=== PATIENT | female | born 1975 | race Caucasian/White ===

== ENCOUNTER 2021-08-15 13:28 | Outpatient (CLI) | payer OTHER, SELFPAY ==
--- NOTE | ~2021-08-15 | XR_ITS ---
XR lumbar spine 2-3V DATE: 08/15/2021 13:52 INDICATION: Low back pain TECHNIQUE: AP, lateral, coned lateral lumbosacral views COMPARISON: None FINDINGS: There is and approximately 22 degrees rotatory dextroscoliosis of the lumbar spine. No fracture or bone destruction, spondylolysis or spondylolisthesis is evident. There is degenerative change at the apophyseal joints particularly in the lower lumbar and lumbosacral area. Lumbar and chris mbosacral interspaces are relatively preserved. The sacroiliac joints are intact. IMPRESSION: Rotatory dextroscoliosis Degenerative change at the apophyseal joints in the lower lumbar and lumbosacral area in particular Reviewed, dictated and finalized at location B. IMPRESSION: Rotatory dextroscoliosis Degenerative change at the apophyseal joints in the lower lumbar and lumbosacra l area in particular
== END 2021-08-15 13:29 | disposition home or self-care (01) ==
PROVIDERS: PCP Internal Medicine; Visit Provider Nurse Practitioner
DX: M54.40 Lumbago with sciatica, unspecified side (principal); M41.9 Scoliosis, unspecified
CPT/HCPCS: 72100

== ENCOUNTER 2023-07-05 01:16 | Day surgery (SDC) | payer OTHER, SELFPAY ==
[2023-07-02 12:24] VITALS: BMI 21.7
--- NOTE | 2023-07-02 12:28 | PC.NURSE ---
Report to the Outpatient Waiting Room, entrance under the green pavilion located off [facility], at time 0815 on date 07/05/23. Planned Procedure Time: 1015. Time changes happen often and if your time is changed the preop area will call you the afternoon before. - You and your visitor will be asked to self-screen and do not enter if you have any COVID symptoms. - A mask is optional within the hospital at this time. Patients may have clear liquids (water, carbonated beverages, clear teas, apple juice) until 3 hours prior to surgery with a maximum of 20 ounces. - No food from midnight until time of surgery Take the following medications with a SIP of water the morning of surgery: N/A DO NOT STOP ANY OF YOUR OTHER PRESCRIPTION MEDICATIONS PRIOR TO SURGERY ?EXCEPT THE FOLLOWING Medications to discontinue per physician: N/A Date to take last dose: N/A Please no make-up, nail frisian, hairspray, perfume, deodorant, or body powder the day of surgery. No jewelry (including any body piercings) or valuables the day of surgery, leave them at home. Please take a shower or bath the night before, or the morning of, surgery with an antibacterial soap. Wear comfortable, loose fitting clothing. - Jewelry must be removed prior to entering the operating room. Rings and piercings that are not removed may be cut off. - The hospital will not accept responsibility for valuables. - Please leave all valuables, including medications, at home the day of surgery. If you are going home after surgery, a licensed tow motor driver must drive you home. - NO public transportation without another adult if you receive anesthesia. - We recommend that an adult stay with you for 24 hours following discharge. - We also recommend that you do not drive, make important decision, drink alcoholic beverages, or take any drugs that were not prescribed by your health care provider for at least 24 hours after your discharge time. Follow any additional instructions given to you from your surgeon. If you or anyone in your household have experienced Covid symptoms in the past week, please notify your surgeon or the nurse liaison at the phone number below for possible testing. Telephone instructions given to PT - ROSALIO VENCES and asked if any additional questions and then verbalized understanding. Patient advised to call surgeon office or pre surgery nurse liaison [phone] if any additional questions.
[2023-07-05 07:12] VITALS: BP 125/65; PULSE 75; RESP 20; TEMP 36.7; O2SAT 100
--- NOTE | 2023-07-05 07:16 | PM.IMHP ---
H&P: HPI History of Present Illness Date/Time: 07/05/23 07:16 Year old female presents for treatment of heavy irregular vaginal bleeding. Cycles lasting 10-14 days with 5-7 days very heavy clotting cramping feeling fatigued as well. Ultrasound showed no abnormalities with normal endometrial lining. has had a vasectomy so tubal ligation is not necessary. Chief Complaint: Menometrorrhagia PMFSH Past Medical History Medical History Elevated BP without diagnosis of hypertension Hyperglycemia Insomnia Mild intermittent asthma Screening mammogram, encounter for Surgical History Surgical History H/O tubal ligation (09/06/05) History of tonsillectomy (11/05/87) Previous section x3 Family History Family History Father Hypertension Grandparent Family history of malignant neoplasm Mother Patient's mother is in good health Other Family history of pancreatic cancer Social History Social History Smoking status: Never smoker Alcohol intake: current Drinks per week: 2 Alcohol use details: RARE Substance use: never Substance use type: does not use Lack of Transportation: No Lack of Food: Never True Current Housing: I Have Housing Concerned About Future Housing: No Difficulty Paying Gas/Electric Bills: No Difficulty Paying for Meds: No Currently Unemployed: No Education: Associate Degree Difficulty w/ Childcare or Family Care: No Living arrangements: with family Additional living arrangements comments: spouse Occupation/Education: occupation 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 Gender identity (if verbalized by the patient): Female Sexual Orientation (if Verbalized by the Patient): Straight or Heterosexual Spiritual care concerns: No Meds Home Medications and Allergies Home Medications Medication Instructions Recorded Confirmed Type No Home Medications 07/02/23 07/02/23 History Allergies Allergy/AdvReac Type Severity Reaction Status Date / Time No Known Allergies Allergy Unknown Verified 07/02/23 12:24 Exam Const: General: cooperative, healthy appearing and comfortable Resp: Effort & Inspection: normal respiratory effort Auscultation: clear to auscultation bilaterally Cardio: Rate: regular rate Rhythm: regular rhythm GI: Inspection: normal to inspection Auscultation: normal bowel sounds : External Female Exam: normal external appearance Speculum Exam - Vagina: normal appearance of the vagina Speculum Exam - Cervix: normal appearance of the cervix Bimanual exam- vagina & uterus: normal bimanual exam and enlarged (8-10 week size) Bimanual Exam- Adnexa, other: normal adnexae Assessment and Plan Assessment and plan (1) Menorrhagia: Code(s): N92.0 - Excessive and frequent menstruation with regular cycle Status: Acute (2) Enlarged uterus: Code(s): N85.2 - Hypertrophy of uterus Status: Acute Plan 1. hysteroscopy with uterine curettings 2. Endometrial ablation
--- NOTE | 2023-07-05 07:18 | WPDHPUPDATE1 ---
History and Physical Update Update Date/Time: 07/05/23 07:18 History and Physical has been reviewed, including an updated exam of the patient. There are NO changes in the patient's condition. Risks, benefits, and alternatives have been discussed and questions answered. Patient agrees to proceed with procedure.
[2023-07-05] MEDS: ACETAMINOPHEN 500 MG TABLET 1000 MG PO (07:52)
[2023-07-05] MEDS: LACTATED RINGERS 1,000 ML 30 ML IV CONT ×2 (07:55→10:18)
--- NOTE | 2023-07-05 08:02 | WPDANESEPPF ---
Anes - Initial Pre Proc Eval Procedure: Operation Date: 07/05/23 09:15 Proposed Procedures p Hysteroscopy Dilation and Curettage Kiya Endometrial Ablation - Hugh Mendez MD Date/Time: 07/05/23 08:02 Surgeon: Hugh Mendez MD Pre Op Diagnosis: menorrhagia Patient Data Age: 48 Gender: F Height: 1.68 m Weight: 62.4 kg Last Vital Signs Temp 36.7 C 07/05/23 07:12 Pulse 75 07/05/23 07:12 Resp 20 07/05/23 07:12 BP 125/65 07/05/23 07:12 Pulse Ox 100 07/05/23 07:12 Allergies Allergy/AdvReac Type Severity Reaction Status Date / Time No Known Allergies Allergy Unknown Verified 07/05/23 07:50 Home Medications Medication Instructions Recorded Confirmed Type No Home Medications 07/02/23 07/05/23 History Patient hx anesthesia problems: none Family hx anesthesia problems: none Results Review: All pre-operative results and documents have been reviewed as part of the pre-operative evaluation. [facility] Past Medical History Medical History Elevated BP without diagnosis of hypertension Hyperglycemia Insomnia Mild intermittent asthma Screening mammogram, encounter for Surgical History Surgical History H/O tubal ligation (09/06/05) History of tonsillectomy (11/05/87) Previous section x3 Family History Family History Father Hypertension Grandparent Family history of malignant neoplasm Mother Patient's mother is in good health Other Family history of pancreatic cancer Social History Social History Smoking status: Never smoker Alcohol intake: current Drinks per week: 2 Alcohol use details: RARE Substance use: never Substance use type: does not use Lack of Transportation: No Lack of Food: Never True Current Housing: I Have Housing Concerned About Future Housing: No Difficulty Paying Gas/Electric Bills: No Difficulty Paying for Meds: No Currently Unemployed: No Education: Associate Degree Difficulty w/ Childcare or Family Care: No Living arrangements: with family Additional living arrangements comments: spouse Occupation/Education: occupation 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 Gender identity (if verbalized by the patient): Female Sexual Orientation (if Verbalized by the Patient): Straight or Heterosexual Spiritual care concerns: No Anes - Eval Final PreProcedure Day of Procedure 07/05/23 08:02 Patient weight: normal Heart: regular rate and rhythm Lungs: clear to auscultation and normal air movement Airway: Mallampati scale class II Neurological: alert and oriented Last oral intake: >/= 8 hours ASA classification: II Emergent: no Anesthetic plan: proceed Anesthesia type and monitoring: general GIVS and standard monitoring Results Review: All pre-operative results and documents have been reviewed as part of the pre-operative evaluation. Informed Consent: The patient's anesthetic plan and its attendant risks and benefits were discussed with the patient/family/POA. Questions were solicited and answers provided to the satisfaction of the patient/family/POA.
[2023-07-05] MEDS: ceFAZolin 2 GM/D5W 50 ML 2 GM/50 ML BAG IVPB (09:25)
--- NOTE | 2023-07-05 09:55 | W.PM.PROC2 ---
Procedure Note - Detailed Date of Procedure 07/05/23 Pre-op Diagnosis menorrhagia Post-op Diagnosis Same Procedure Performed 1. Hysteroscopy with uterine curettings 2. Endometrial ablation Surgeon Hugh Mendez MD Anesthesia MAC Findings 1. Stenotic cervix 2. Thickened endometrium Description of Procedure Patient prepped draped usual manner for this procedure. Cervix was stenotic but was able to be dilated and hysteroscope was then placed with evaluation of endometrial cavity which showed thickened tissue. Curettings were obtained. Kiya instrument was then placed cavity assessment performed and instrument activated. At the end of the cycle hysteroscopic exam revealed good destruction throughout and no damage. Patient tolerated the procedure well and was sent to recovery room in stable condition. Estimated Blood Loss 10 Drains No Packing No Pathology Yes Complications No immediate complications Condition Stable Disposition PACU [facility] Billing Surgery - Charge Forward: Surgery Billing
[2023-07-05 09:58] VITALS: BP 147/72; PULSE 82; RESP 14; O2SAT 99
[2023-07-05 10:15] VITALS: BP 140/74; PULSE 66; RESP 15; O2SAT 100
[2023-07-05] MEDS: fentaNYL CITRATE INJ (*CRX) 100 MCG/2 ML VIAL 25 MCG IV PUSH ×3 (10:15→11:01)
[2023-07-05 10:45] VITALS: BP 143/68; PULSE 64; RESP 16; O2SAT 100
[2023-07-05] MEDS: oxyCODONE HCL (*CRX) 5 MG TAB IR PO (11:02)
[2023-07-05 11:20] VITALS: BP 145/75; PULSE 65; RESP 14
== END 2023-07-05 11:27 | disposition home or self-care (01) ==
PROVIDERS: PCP Internal Medicine; Visit Provider Obstetrics & Gynecology
PROC: 0U5B8ZZ Destruction of Endometrium, Via Natural or Artificial Opening Endoscopic (ICD-10-PCS; CPT 58563; principal; 2023-07-05 09:15)
DX: N92.0 Excessive and frequent menstruation with regular cycle (principal); N85.2 Hypertrophy of uterus
CPT/HCPCS: 58563; 88305; A9270; J0690; J2250; J2704; J3010; J7120

== ENCOUNTER 2023-08-07 09:31 | Outpatient (CLI) | payer OTHER, SELFPAY ==
[2023-08-07 19:00] LABS: Vitamin D 25 Hydroxy 35.4 ng/mL
[2023-08-07 19:36] LABS: Alanine Aminotransferase 16 U/L (6-35); Albumin Level 4.4 g/dL (3.5-5.1); Alkaline Phosphatase 45 U/L (38-126); Anion Gap 6 mmol/L (8-16); Aspartate Amino Transferase 32 U/L (14-36); Bilirubin,Total 0.7 mg/dL (0.2-1.3); Blood Urea Nitrogen 11 mg/dL (7-17); Calcium 9.2 mg/dL (8.4-10.2); Carbon Dioxide 29 mmol/L (22-30); Chloride 103 mmol/L (98-107); Cholesterol 225 mg/dL (0-200); Estimated Glomerular Filt Rate > 60; Glucose 73 mg/dL (65-110); HDL Direct 66 mg/dL; Potassium 4.2 mmol/L (3.4-5.0); Sodium 138 mmol/L (137-145); Triglycerides 74 mg/dL (<150)
[2023-08-07 19:48] LABS: LDL Cholesterol Direct 125 mg/dL
== END 2023-08-07 09:32 | disposition home or self-care (01) ==
PROVIDERS: PCP Internal Medicine; Visit Provider Nurse Practitioner
DX: Z13.220 Encounter for screening for lipoid disorders (principal); Z13.29 Encounter for screening for other suspected endocrine disorder; E55.9 Vitamin D deficiency, unspecified
CPT/HCPCS: 36415; 80053; 80061; 82306

== ENCOUNTER 2023-11-20 00:45 | Day surgery (SDC) | payer OTHER, SELFPAY ==
[2023-10-22 15:07] VITALS: BMI 20.8
--- NOTE | 2023-11-16 10:35 | SUR.PREOP ---
Patient called regarding upcoming procedure. Message left on pt's voicemail regarding appointment times.
[2023-11-20 08:19] VITALS: BP 110/70; PULSE 80; RESP 18; TEMP 36.4; O2SAT 100
[2023-11-20] MEDS: LACTATED RINGERS 1,000 ML 150 ML IV CONT (08:33)
--- NOTE | 2023-11-20 09:14 | WPDANESEPPF ---
Anes - Initial Pre Proc Eval Procedure: Operation Date: 11/20/23 09:30 Proposed Procedures p Screening Colonoscopy - Cristofer Beckett MD Date/Time: 11/20/23 09:14 Surgeon: Cristofer Beckett MD Pre Op Diagnosis: neoplasm screening Patient Data Age: 48 Gender: F Height: 1.68 m Weight: 60.5 kg Last Vital Signs Temp 97.6 F 11/20/23 08:19 Pulse 80 11/20/23 08:19 Resp 18 11/20/23 08:19 BP 110/70 11/20/23 08:19 Pulse Ox 100 11/20/23 08:19 O2 Del Method Room Air 11/20/23 08:19 Allergies Allergy/AdvReac Type Severity Reaction Status Date / Time No Known Allergies Allergy Unknown Verified 11/20/23 08:18 Home Medications Medication Instructions Recorded Confirmed Type ibuprofen 800 mg tablet 800 mg PO TID PRN pain #20 tabs 07/05/23 10/22/23 Rx albuterol sulfate 90 mcg/actuation 2 puff inhalation Q4-6H PRN 08/07/23 10/22/23 Rx aerosol inhaler (Ventolin HFA) bronchospasm #8.5 grams alprazolam 0.25 mg tablet (Xanax) 0.25 mg PO DAILY PRN anxiety #20 08/07/23 10/22/23 Rx tabs baclofen 10 mg tablet See Rx Instructions PO BID #40 tabs 08/07/23 10/22/23 Rx triamcinolone acetonide 0.1 % 1 applic topical BID PRN rash #80 08/07/23 10/22/23 Rx topical cream grams fluticasone 250 mcg-salmeterol 50 1 inh inhalation BID PRN Shortness 10/22/23 10/22/23 History mcg/dose blistr powdr for Of Breath inhalation (Advair Diskus) Patient hx anesthesia problems: none Family hx anesthesia problems: none Results Review: All pre-operative results and documents have been reviewed as part of the pre-operative evaluation. [facility] Past Medical History Medical History (Updated 08/07/23 @ 09:37 by Mya Trevino NP) Elevated BP without diagnosis of hypertension Hyperglycemia Insomnia Mild intermittent asthma Screening mammogram, encounter for Surgical History Surgical History H/O tubal ligation (09/06/05) History of hysteroscopy (~07/05/23) Hysteroscopy with uterine curettings 2. Endometrial ablation History of tonsillectomy (11/05/87) Previous section x3 Family History Family History Father Hypertension Grandparent Family history of malignant neoplasm Mother Patient's mother is in good health Other Family history of pancreatic cancer Social History Social History (Updated 08/07/23 @ 09:12 by Sofia Lopez MACHINE PACKAGING TECHNICIAN) Smoking status: Never smoker Alcohol intake: current Drinks per week: 2 Alcohol use details: RARE Substance use: never Substance use type: does not use Lack of Transportation: No Lack of Food: Never True Current Housing: I Have Housing Concerned About Future Housing: No Difficulty Paying Gas/Electric Bills: No Difficulty Paying for Meds: No Currently Unemployed: No Education: Trade/Vocational Certificate Difficulty w/ Childcare or Family Care: No Living arrangements: other Additional living arrangements comments: with sp Occupation/Education: occupation 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 Gender identity (if verbalized by the patient): Female Sexual Orientation (if Verbalized by the Patient): Straight or Heterosexual Spiritual care concerns: No Anes - Eval Final PreProcedure Day of Procedure 11/20/23 09:14 Patient weight: normal Heart: regular rate and rhythm Lungs: clear to auscultation Airway: Mallampati scale class II Neurological: alert and oriented Last oral intake: >/= 8 hours ASA classification: II Emergent: no Anesthetic plan: proceed Anesthesia type and monitoring: general GIVS and standard monitoring Results Review: All pre-operative results and documents have been reviewed as part of the pre-operative evaluation. Informed Consent: The patient's anesthetic plan and its attendant risks and benefits were discussed with the patient
--- NOTE | 2023-11-20 09:31 | PM.HPGS ---
History of Present Illness History of Present Illness Consent: Risks, benefits, and alternatives have been discussed and questions answered. Patient agrees to proceed with procedure. Chief complaint: neoplasm screening Narrative: Marii Valenzuela is a 48 year old female here for screening colonoscopy, last one about 15 years ago Review of Systems Constitutional: Constitutional: Denies headache(s) and Denies weakness Eyes: Eyes: Denies blurry vision ENT: Reports Normal hearing present, Denies headache(s) and Denies neck pain Cardiovascular: Cardiovascular: Denies chest pain and Denies dyspnea Respiratory: Respiratory: Denies dyspnea Gastrointestinal: Gastrointestinal: Reports no additional gastrointestinal complaints Genitourinary: Genitourinary: Denies dysuria Musculoskeletal: Musculoskeletal: Denies neck pain Integumentary/Breasts: Skin/Breast: Denies dry skin Neurologic: Reports Normal hearing present, Denies headache(s) and Denies weakness Psychiatric: Psychiatric: Denies anxiety Endocrine: Endocrine: Denies change in body appearance Hematologic/Lymphatic: Hematologic/Lymphatic: Denies easy bleeding Allergic/Immunologic: Allergic/Immunologic: Denies urticaria PMFSH Past Medical History Medical History (Updated 08/07/23 @ 09:37 by Mya Trevino NP) Elevated BP without diagnosis of hypertension Hyperglycemia Insomnia Mild intermittent asthma Screening mammogram, encounter for Surgical History Surgical History H/O tubal ligation (09/06/05) History of hysteroscopy (~07/05/23) Hysteroscopy with uterine curettings 2. Endometrial ablation History of tonsillectomy (11/05/87) Previous section x3 Family History Family History Father Hypertension Grandparent Family history of malignant neoplasm Mother Patient's mother is in good health Other Family history of pancreatic cancer Social History Social History (Updated 08/07/23 @ 09:12 by Sofia Lopez CMA) Smoking status: Never smoker Alcohol intake: current Drinks per week: 2 Alcohol use details: RARE Substance use: never Substance use type: does not use Lack of Transportation: No Lack of Food: Never True Current Housing: I Have Housing Concerned About Future Housing: No Difficulty Paying Gas/Electric Bills: No Difficulty Paying for Meds: No Currently Unemployed: No Education: Trade/Vocational Certificate Difficulty w/ Childcare or Family Care: No Living arrangements: other Additional living arrangements comments: with sp Occupation/Education: occupation 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 Gender identity (if verbalized by the patient): Female Sexual Orientation (if Verbalized by the Patient): Straight or Heterosexual Spiritual care concerns: No Meds Home Medications and Allergies Home Medications Medication Instructions Recorded Confirmed Type ibuprofen 800 mg tablet 800 mg PO TID PRN pain #20 tabs 07/05/23 10/22/23 Rx albuterol sulfate 90 mcg/actuation 2 puff inhalation Q4-6H PRN 08/07/23 10/22/23 Rx aerosol inhaler (Ventolin HFA) bronchospasm #8.5 grams alprazolam 0.25 mg tablet (Xanax) 0.25 mg PO DAILY PRN anxiety #20 08/07/23 10/22/23 Rx tabs baclofen 10 mg tablet See Rx Instructions PO BID #40 tabs 08/07/23 10/22/23 Rx triamcinolone acetonide 0.1 % 1 applic topical BID PRN rash #80 08/07/23 10/22/23 Rx topical cream grams fluticasone 250 mcg-salmeterol 50 1 inh inhalation BID PRN Shortness 10/22/23 10/22/23 History mcg/dose blistr powdr for Of Breath inhalation (Advair Diskus) Allergies Allergy/AdvReac Type Severity Reaction Status Date / Time No Known Allergies Allergy Unknown Verified 11/20/23 08:18 Vital Signs Vital Signs - 24 hr 11/20/23 08:19 Temperature 97.6 F Pulse Rate 80 Respiratory Rate 1
[2023-11-20 09:53] VITALS: BP 111/47; PULSE 78; RESP 21; O2SAT 100
[2023-11-20 10:02] VITALS: BP 121/69; PULSE 60; RESP 21; O2SAT 100
[2023-11-20 10:12] VITALS: BP 120/70; PULSE 77; RESP 18; O2SAT 100
== END 2023-11-20 10:20 | disposition home or self-care (01) ==
PROVIDERS: PCP Internal Medicine; Visit Provider Internal Medicine Gastroenterology
PROC: 0DJD8ZZ Inspection of Lower Intestinal Tract, Via Natural or Artificial Opening Endoscopic (ICD-10-PCS; CPT 45378; principal; 2023-11-20 09:30)
DX: Z12.11 Encounter for screening for malignant neoplasm of colon (principal); K64.8 Other hemorrhoids
CPT/HCPCS: 45378; J2704; J7120

== ENCOUNTER 2025-01-28 14:48 | Outpatient (CLI) | payer OTHER, SELFPAY ==
--- NOTE | ~2025-01-28 | XR_ITS ---
XR_CERV2-3V_CR 01/28/2025 15:01 Indication: Radiculopathy Procedure: 3 view cervical spine Comparison: No prior studies for comparison. Findings: There is reversal of cervical lordosis. There is disc narrowing at C5-6 and C6-7. Odontoid process is normal. There is mild uncinate degenerative change at C5-6 and C6-7. Lateral masses are no rmally aligned. Impression: 1: Mild-moderate cervical spondylosis at C5-6 and C6-7. Reviewed, dictated and finalized at location A. Impression: 1: Mild-moderate cervical spondylosis at C5-6 and C6-7.
== END 2025-01-28 14:49 | disposition home or self-care (01) ==
LOC: GOSHIMG 14:49
PROVIDERS: PCP Clinical Nurse Specialist; Visit Provider Clinical Nurse Specialist
DX: M47.812 Spondylosis without myelopathy or radiculopathy, cervical region (principal)
CPT/HCPCS: 72040

== ENCOUNTER 2025-03-04 09:46 | Outpatient (CLI) | payer OTHER, SELFPAY ==
--- NOTE | ~2025-03-04 | MR_ITS ---
MRI of the cervical spine Clinical History: Radiculopathy Technique: Axial T2-weighted and gradient images, and sagittal T1-weighted, T2-weighted, and STIR millicent ges were acquired. Findings: There is reversal normal cervical lordosis. No fracture or subluxation. No bone marrow sign al abnormality seen. At C2-C3, there is no disc bulge or herniation. No spinal canal stenosis, cord compression, or neural foraminal narrowing. C3-C4, there is minimal disc bulge. No spinal canal stenosis, cord compression, or neural foraminal n arrowing. At C4-C5, there is mild disc osteophyte complex. There is mild to moderate compression of the ventral cord with mild canal stenosis. Bilateral neural foramina are preserved. At C5-C6, there is moderate degenerative distended. There is a suspected, resulting in moderate canal stenosis and cord compression. There is right neural foraminal narrowing. Left neural foramen preser cristian. At C6-C7, there is left foraminal disc osteophyte complex with left neural foraminal narrowing. No ca nal stenosis, cord compression, or right neural foraminal narrowing. No abnormal signal seen in the spinal cord. Paravertebral soft tissues are unremarkable. Impression: Moderate to severe spondylitic changes with associated canal stenosis and cord compression at C4-C5 a nd C5-C6. Please see details above. Left neural foraminal narrowing at C6-C7. Reversal of the normal cervical lordosis. Reviewed, dictated and finalized at [facility]. Impression: Moderate to severe spondylitic changes with associated canal stenosis and cord compression at C4-C5 and C5-C6. Please see details above. Left neural foraminal narrowing at C6-C7. Reversal of the normal cervical lordosis.
== END 2025-03-04 09:47 | disposition home or self-care (01) ==
LOC: GOSHIMG 09:46
PROVIDERS: PCP Clinical Nurse Specialist; Visit Provider Clinical Nurse Specialist
DX: M47.812 Spondylosis without myelopathy or radiculopathy, cervical region (principal); M48.00 Spinal stenosis, site unspecified; M40.03 Postural kyphosis, cervicothoracic region
CPT/HCPCS: 72141